=== PATIENT | male | born 1935 | race Caucasian/White ===

== ENCOUNTER 2018-03-26 05:49 | Day surgery (SDC) | payer OTHER, BC ==
[2018-03-20 14:48] VITALS: BMI 27.8
[2018-03-26] MEDS ORDERED: MIDAZOLAM HCL 2 MG/2 ML SINGLE DOSE VIAL ONE (07:22)
[2018-03-26] MEDS ORDERED: POVIDONE-IODINE 5% OPHTHALMIC PREP 30 ML SOLUTION ONE (07:24)
[2018-03-26] MEDS ORDERED: TETRACAINE 0.5% OPHTH SOLN 2 ML BOTTLE ONE (07:24)
[2018-03-26] MEDS ORDERED: ERYTHROMYCIN 0.5% OPHTHALMIC OINTMENT 3.5 GM TUBE ONE (07:24)
[2018-03-26] MEDS ORDERED: LIDOCAINE 1%/EPI 1:100000 (20 ML MULTI DOSE VIAL) ONE (07:25)
[2018-03-26] MEDS ORDERED: BUPIVACAINE HCL/PF 0.5% (5MG/ML) 10 ML VIAL ONE (07:25)
[2018-03-26] MEDS ORDERED: ceFAZolin SODIUM 1 GM VIAL ONE (07:33)
[2018-03-26] MEDS ORDERED: ONDANSETRON 4 MG/2 ML VIAL ONE (07:33)
[2018-03-26] MEDS ORDERED: SUCCINYLCHOLINE CHLORIDE 200 MG/10 ML VIAL ONE (07:33)
[2018-03-26] MEDS ORDERED: PROPOFOL 20 ML ONE ×2 (07:33)
[2018-03-26] MEDS ORDERED: oxyCODONE HCL 5 MG TABLET PO PRN (09:39)
[2018-03-26] MEDS ORDERED: ONDANSETRON 4 MG/2 ML VIAL IVPUSH PRN (09:39)
[2018-03-26] MEDS ORDERED: LACTATED RINGERS SOLUTION 1,000 ML IV SCH (09:45)
--- NOTE | 2018-03-26 10:06 | OP ---
DATE OF OPERATION: 03/26/2018 PREOPERATIVE DIAGNOSIS: Involutional ptosis bilateral upper lids. POSTOPERATIVE DIAGNOSIS: Involutional ptosis bilateral upper lids. PROCEDURE: 1. Levator advancement, resection, reattachment, right upper lid. 2. Levator advancement, resection, reattachment, left upper lid. SURGEON: Elaine Hernandez MD ANESTHESIA: Local with sedation. COMPLICATIONS: None. ESTIMATED BLOOD LOSS: 1-2 mL. OPERATIVE REPORT: The patient was brought to the operating room and placed on the operating room table. Vital signs were monitored by Anesthesia. Tetracaine was placed in both eyes. Line was marked 10 mm above the central lid margin in curvilinear fashion in the lid crease. A timeout was performed. After which, intravenous sedation was administered and 2% xylocaine 1:100,000 epinephrine was injected for 0.75 mL in both upper lids. The patient was prepped and draped in the usual sterile fashion exposing both eyes, and the following procedure was performed bilaterally: An incision was made in the lid crease carried down through skin and subcutaneous and then through the orbicularis layer. The septum was widely opened exposing the preaponeurotic fat. The fat was retracted exposing the levator aponeurosis. Suborbicularis plane was dissected and freely exposed the anterior-superior tarsus, and the levator was then reattached to the anterior-superior tarsus with a central mattress suture, and a nasal interrupted suture both of 6-0 Vicryl. Lid was everted demonstrating no penetration of the suture through the tarsal plane. These were tied with slip notes. This was performed bilaterally. The patient as then awakened from anesthesia and placed in the upright position and the sutures were adjusted as needed to obtain an acceptable contour and lid height. Once this was obtained, the sutures were then tied. The patient was again given some intravenous sedation, and antibiotic irrigation was used throughout the case and again before closure, and the skin was closed with running 6-0 plain suture. Erythromycin ointment was placed on the sutures and in both eyes. The patient was taken to the recovery room in stable condition. ELAINE HERNANDEZ M.D. [id number]
[2018-03-26 10:15] VITALS: TEMP 98
[2018-03-26] MEDS ORDERED: ACETAMINOPHEN 500 MG TABLET (FP) ONE (10:16)
[2018-03-26 10:56] VITALS: BP 117/67; PULSE 56
== END 2018-03-26 11:00 | disposition home or self-care (01) ==
LOC: FASU 05:49
PROVIDERS: ATTEND Ophthalmology
PROC: 08SN0ZZ Reposition Right Upper Eyelid, Open Approach (ICD-10-PCS; 2018-03-26)
PROC: 08SP0ZZ Reposition Left Upper Eyelid, Open Approach (ICD-10-PCS; principal; 2018-03-26 08:18)
DX: H02.403 Unspecified ptosis of bilateral eyelids (principal)
CPT/HCPCS: 70260-TC-FY; 94760

== ENCOUNTER 2018-07-23 06:14 | Day surgery (SDC) | payer OTHER, BC ==
[2018-07-19 11:36] VITALS: BMI 27.8
[2018-07-23] MEDS ORDERED: LIDOCAINE 1%/EPI 1:100000 (20 ML MULTI DOSE VIAL) ONE ×2 (07:18→07:58)
[2018-07-23] MEDS ORDERED: ERYTHROMYCIN 0.5% OPHTHALMIC OINTMENT 3.5 GM TUBE ONE (07:18)
[2018-07-23] MEDS ORDERED: TETRACAINE 0.5% OPHTH SOLN 2 ML BOTTLE ONE (07:33)
[2018-07-23] MEDS ORDERED: MIDAZOLAM HCL 2 MG/2 ML SINGLE DOSE VIAL ONE (07:37)
[2018-07-23] MEDS ORDERED: POVIDONE-IODINE 5% OPHTHALMIC PREP 30 ML SOLUTION ONE (07:42)
[2018-07-23] MEDS ORDERED: SUCCINYLCHOLINE CHLORIDE 200 MG/10 ML VIAL ONE (07:43)
[2018-07-23] MEDS ORDERED: PROPOFOL 20 ML ONE ×2 (07:43)
[2018-07-23] MEDS ORDERED: ONDANSETRON 4 MG/2 ML VIAL ONE (08:00)
[2018-07-23] MEDS ORDERED: DEXAMETHASONE SOD PHOSPHATE 4 MG/1 ML VIAL ONE (08:00)
[2018-07-23] MEDS ORDERED: ceFAZolin SODIUM 1 GM VIAL ONE (08:00)
[2018-07-23] MEDS ORDERED: ONDANSETRON 4 MG/2 ML VIAL IVPUSH PRN (08:53)
[2018-07-23] MEDS ORDERED: oxyCODONE HCL 5 MG TABLET PO PRN (08:53)
[2018-07-23] MEDS ORDERED: LACTATED RINGERS SOLUTION 1,000 ML IV SCH (09:00)
--- NOTE | 2018-07-23 09:30 | OP ---
DATE OF OPERATION: 07/23/2018 PREOPERATIVE DIAGNOSES: Recurrent ptosis, left upper lid with visual obstruction and lash ptosis. 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 PROCEDURE: 1. Levator advancement, left upper lid. 2. Rotation of lashes to correct lash ptosis, left upper lid. SURGEON: Elaine Hernandez MD ANESTHESIA: Local with sedation. COMPLICATIONS: None. ESTIMATED BLOOD LOSS: 1-2 mL DESCRIPTION OF OPERATION: Patient was brought to the operating room, placed on the operating room table. Vital signs were monitored by Anesthesia. Timeout was performed. Tetracaine was placed in both eyes. Lid crease had been marked in the left upper lid preoperatively in the holding area. After intravenous sedation, 2% xylocaine and 1:100,000 epinephrine was injected in the left upper lid in the lid crease. A total of 0.7 mL. Massage was gently applied for hemostasis. Patient was prepped and draped in usual sterile fashion, exposing both eyes, and the lid crease was incised through the skin and subcutaneous tissue with a 15 blade. Karnes needle was used for hemostasis throughout the case to dissect through the scar tissue and orbicularis down to the septum. The sub orbicularis plane was dissected superiorly, exposing the septum which was scarred. The septum was opened, and the fat was incised. There was some bleeding from the fat, showing that there was a fair amount of scar tissue postoperatively from the initial levator repair. The fat was then retracted with Desmarres demonstrating the levator. Sub orbicularis plane was dissected inferiorly, exposing the anterior-superior tarsus, and using a mattressed Vicryl suture centrally and interrupted Vicryl suture, both 6-0 nasally, levator was attached to the tarsus. The patient was placed in upright position. The nasal suture was advanced. There was a small amount of levator resection centrally and nasally, and the mattress suture and the nasal suture were then tied. The patient was checked in the upright position and seen to have a good MRD of approximately 2-3 mm and with good contour and no lagophthalmos. The patient was again placed in the supine position. Antibiotic irrigation was used throughout the case. Hemostasis was maintained throughout the case. Two double-armed 5-0 chromics were then used. They were placed through the superior tarsus, partial thickness, and then, in mattress fashion, passed through the skin muscle flap just above the lash line in order to cause lash rotation as the patient had complained preoperatively the lashes were interfering with his vision. One was placed nasally, and one was placed . These were tied, rotating the lashes. After antibiotic irrigation, additional anesthetic was injected in the skin around the incision in order to close it, and there was a small ecchymotic area that developed from this injection. The wound was closed with a running 6-0 plain suture. Erythromycin was placed in the eye on the sutures. The lid was everted, demonstrating no penetration of the sutures, and the patient was taken to recovery room in stable condition. ELAINE HERNANDEZ M.D. [id number]
[2018-07-23 09:46] VITALS: TEMP 98
[2018-07-23] MEDS ORDERED: ACETAMINOPHEN 325 MG TABLET (FP) ONE (09:47)
[2018-07-23 10:45] VITALS: BP 118/74; PULSE 69
== END 2018-07-23 10:49 | disposition home or self-care (01) ==
LOC: FASU 06:14
PROVIDERS: ATTEND Ophthalmology
PROC: 08SP0ZZ Reposition Left Upper Eyelid, Open Approach (ICD-10-PCS; principal; 2018-07-23 07:30)
DX: H02.423 Myogenic ptosis of bilateral eyelids (principal)
CPT/HCPCS: 94760